=== PATIENT | female | born 1990 | race American Indian/Alaskan Native ===

== ENCOUNTER 2017-05-10 16:05 | Inpatient (IN) | payer MEDICAID ==
--- NOTE | 2017-05-10 17:13 | History and Physical Report ---
History of Present Illness Date of examination: 05/10/17 Date of admission: 05/10/17 16:05 Chief complaint: Elevated blood pressure Rule out labor History of present illness: 26-year-old at 34+1 weeks is admitted from the clinic, she is a [facility] patient. Essential history this patient with chronic hypertension and obesity who is on labetalol 100 mg twice a day; she sees [facility] and has weekly ultrasounds the last on 05/07/2017. It appears patient was seen in the clinic today with blood pressure noted to be in the 160 over 100s, asymptomatic for pre -E but complaining of contractions and pressure. She was sent to [facility] for rule out labor and management of her blood pressure. Review of records shows possible IUGR from last growth scan. She has not had steroid shot. Per patient glucose testing was negative. 24 hour urine protein obtained 04/17/17 appears to be negative per chart review On L&D, her blood pressure is 158/85. Cervical exam per RN is 2-3 cm, no obvious contractions noted on the monitor. 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 denies: smoking, alcohol abuse, prescription drug abuse, IV drug use - Obstetrical History Expected Date of Delivery: 06/20/17 Actual Gestation: 34 Week(s) 1 Day(s) : 5 Para: 3 Review of Systems Constitutional: no fever, no chills, no anorexia, no chronic headaches Eyes: no diplopia, no photophobia, no blind spots Cardiovascular: no chest pain, no orthopnea, no syncope, no lightheadedness, no shortness of breath, no dyspnea on exertion, no high blood pressure, no decreased exercise tolerance Respiratory: no cough, no shortness of breath Gastrointestinal: no heartburn, no indigestion Genitourinary: no vaginal bleeding, no leakage of fluid - Vital Signs Vital signs: Vital Signs Pulse BP 71 150/85 05/10/17 16:46 05/10/17 16:46 Temp Pulse Resp BP Pulse Ox 97.2 F L 67 16 150/85 100 05/10/17 16:47 05/10/17 16:57 05/10/17 16:47 05/10/17 16:47 05/10/17 16:57 - Physical Exam Cardiovascular: Regular rate, Normal S1, Normal S2 Lungs: Positive: Clear to auscultation, Normal air movement Abdomen: Positive: normal appearance, soft. Negative: distention, tenderness, guarding Genitourinary (Female): Positive: normal external genitalia Uterus: Positive: enlarged (EFW ~ 2800). Negative: tender Adnexa: both: normal Extremities: Positive: normal - Obstetrical FHR: category 1 Cervical Dilatation: 2.5 (Per RN) Results All other labs normal. Assessment and Plan A: 26-year-old at 34+1 weeks with chronic hypertension -r/o superimposed pre-E -r/o labour issues -Chronic hypertension -Obesity -IUGR at 7% P: -Admit -Serial blood pressures -HELLP labs -Obtain confirmation of -24 hour urine protein -BMZ course -BPP and Doppler -Consider magnesium if blood pressures persistently in severe range -MFM consultation - Patient Problems (1) 34 weeks gestation of Current Visit: Yes Status: Acute (2) Chronic hypertension affecting Current Visit: Yes Status: Acute (3) IUGR (intrauterine growth restriction) Current Visit: Yes Status: Acute
[2017-05-10] MEDS ORDERED: APRESOLINE IV PRN (17:21)
[2017-05-10] MEDS ORDERED: BENADRYL PO PRN (17:24)
[2017-05-10] MEDS ORDERED: COLACE PO PRN (17:24)
[2017-05-10 17:56] LABS: Hematocrit 27.3 % (30.3-42.9); Hemoglobin 8.9 gm/dl (10.1-14.3); Mean Corpuscular HGB Conc 33 % (30-34); Mean Corpuscular Hemoglobin 27 pg (28-32); Mean Corpuscular Volume 81 fl (79-97); Platelet Count 339 K/mm3 (140-440); Red Blood Count 3.35 M/mm3 (3.65-5.03); Red Cell Distribution Width 15.9 % (13.2-15.2)
[2017-05-10] MEDS ORDERED: LACTATED RINGERS 1,000 ML IV SCH (18:00)
[2017-05-10 18:24] LABS: Alanine Aminotransferase 10 units/L (7-56); Albumin 2.8 g/dL (3.9-5); BUN/Creatinine Ratio 4; Bilirubin,Direct 0.2 mg/dL (0-0.2); Blood Urea Nitrogen 2 mg/dL (7-17); Calcium 8.4 mg/dL (8.4-10.2); Hemolysis Index 6
[2017-05-10 18:43] LABS: Bilirubin,Urine NEG (Negative); Blood,Urine NEG (Negative); Color,Urine Yellow (Yellow); Protein,Urine <15 mg/dL mg/dL (Negative); Urobilinogen,Urine < 2.0 mg/dL (<2.0); WBC,Urine < 1.0 /HPF (0.0-6.0)
[2017-05-10 18:51] LABS: RBC,Urine < 1.0 /HPF (0.0-6.0)
[2017-05-10 18:52] LABS: Amphetamine Screen,Urine PRESUMPTIVE NEGATIVE; Benzodiazepines Screen,Urine PRESUMPTIVE NEGATIVE; Cannabinoid Screen,Urine PRESUMPTIVE NEGATIVE; Cocaine Screen,Urine PRESUMPTIVE NEGATIVE; Methadone Screen,Urine PRESUMPTIVE NEGATIVE; Opiate Screen,Urine PRESUMPTIVE NEGATIVE
[2017-05-10] MEDS ORDERED: NORMOSOL-R PH 7.4 1,000 ML IV ONE (19:41)
[2017-05-10] MEDS ORDERED: STADOL ONE (19:42)
[2017-05-10] MEDS: CELESTONE SOLUSPAN IM SCH (20:03)
[2017-05-10] MEDS: K-DUR PO PRN ×2 (20:07→23:25)
--- NOTE | 2017-05-10 20:48 | Ultrasound Report ---
FINAL REPORT PROCEDURE: US OB LIMITED TECHNIQUE: Real-time limited sonographic examination was performed for evaluation of WEIGHT for each fetus with image documentation (1 or more fetuses). CPT 18938 HISTORY: est weight COMPARISON: No prior studies are available for comparison. FINDINGS: FETUS IUP: Single living intrauterine . Position: CEPHALIC. Placental position: ANTERIOR with grade 1 maturity, without previa . Amniotic fluid volume: Normal . Heart rate and rhythm: 137 BPM, Regular . MEASUREMENTS BPD: 8.2 centimeters corresponding to 33 weeks and 3 days. HC: 30 centimeters corresponding to 33 weeks and 2 days. AC: 27.8 centimeters corresponding to 31 weeks and 6 days. FL: 6.1 centimeters corresponding to 31 weeks and 4 days. Mean Gestational Age (composite criteria): 32 weeks and 4 days. Ratio biometry: Normal . Estimated Weight: 1887 grams. IMPRESSION: 1. Single living intrauterine gestation at approximately 32 weeks and 4 days. 2. EDC by US 07/01/2017. Estimated weight 1887 grams
--- NOTE | 2017-05-10 20:50 | Ultrasound Report ---
FINAL REPORT PROCEDURE: US OB BPP WO NON-STRESS TECHNIQUE: Sonographic evaluation for breathing, movement, tone, and amniotic fluid volume was performed. CPT 92820 HISTORY: IUGR with chronic HTN COMPARISON: No prior studies are available for comparison. FINDINGS: Amniotic fluid volume: Normal-score 2. At least one vertical pocket > 2 cm or more in vertical axis. breathing: Normal-score 2. movement: Normal-score 2. tone: Normal. Score: 8 of 8. heart rate is 145 beats per Min IMPRESSION: Normal biophysical profile.
[2017-05-10] MEDS ORDERED: NORMODYNE PO SCH ×2 (22:00→22:12)
--- NOTE | 2017-05-10 22:14 | Consultation ---
History of Present Illness Consult date: 05/10/17 Requesting physician: OLY DOWNING History of present illness: Ms. Shell is a 26 y/o BURKE 06/22/17 EGA 34 1/ weeks sent in from OB's office with Elevated BP's "160/100" Reports BP's Elevated early in (147/90 at 8 weeks on 11/09/16) Denies VERMA';s [place] or RUQ Pain Upon admission noted to have contractions and 2 to 3 cm dilated BP's now 149/86 and 137/94 Followed by [facility] for CHTN and IUGR and [facility] US 04/30/17 EFW at 7% [facility] US 05/10/17 [facility] US today EFW at 1881 at 5% with AC at 5% BPP 8/ Cord Dopplers at 3.4 Receiving Steroids PIH Labs WNL AST/ALT at 25/10 Plts at 339 H/H at 8.9/27 K low at 3.0 OB History 06 - M 7' 11 - F 7' 16 - Induced at 38 weeks due to HTN M 6' ?? 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: chlamydia, gonorrhea, hepatitis B, hepatitis C, herpes, HIV , syphilis, trichomonas - Obstetrical History : 5 Medications and Allergies Allergies Allergy/AdvReac Type Severity Reaction Status Date / Time No Known Allergies Allergy Unverified 05/10/17 17:31 Home Medications Medication Instructions Recorded Confirmed Last Taken Type Aspirin BABY CHEW TAB 81 mg PO QDAY 05/10/17 05/10/17 Unknown History Docusate Sodium [Colace CAP] 1 tab PO QDAY 05/10/17 05/10/17 Unknown History Labetalol 100 mg PO BID 05/10/17 05/10/17 05/10/17 10:00 History Valacyclovir HCl [Valtrex] 500 mg PO QDAY 05/10/17 05/10/17 Unknown History Active Meds: Active Medications Acetaminophen (Tylenol) 650 mg PO Q4H PRN PRN Reason: Pain MILD(1-3)/Fever >100.5/VERMA Betamethasone Acet/Betameth SodPhos (Celestone Soluspan) 12 mg IM Q24HR VIPIN Stop: 05/11/17 10:01 Last Admin: 05/10/17 20:03 Dose: 12 mg Butorphanol Tartrate (Stadol) 2 mg IV Q2H PRN PRN Reason: Labor Pain Diphenhydramine HCl (Benadryl) 25 mg PO Q6H PRN PRN Reason: Itching Docusate Sodium (Colace) 100 mg PO Q12H PRN PRN Reason: Constipation Hydralazine HCl (Apresoline) 5 mg IV Q30MIN PRN PRN Reason: Hypertension Lactated Ringer's (Lactated Ringers) 1,000 mls @ 125 mls/hr IV DIRECT VIPIN Parenteral Electrolytes (Normosol-R Ph 7.4) 1,000 mls @ 125 mls/hr IV DIRECT VIPIN Labetalol HCl (Normodyne) 100 mg PO BID [facility] Multivitamins/Iron/Calcium ( Vitamin) 1 each PO QDAY [facility] Ondansetron HCl (Zofran) 4 mg IV Q6H PRN PRN Reason: Nausea And Vomiting Potassium Chloride (K-Dur) 20 meq PO Q2H PRN PRN Reason: Potassium 3-3.5 mEq/L Last Admin: 05/10/17 20:07 Dose: 20 meq - Vital Signs Vital signs: Vital Signs Pulse BP 71 150/85 05/10/17 16:46 05/10/17 16:46 Temp Pulse Resp BP Pulse Ox 97.2 F L 94 H 18 137/94 98 05/10/17 16:47 05/10/17 21:52 05/10/17 20:34 05/10/17 21:52 05/10/17 21:07 Results Result Diagrams: 05/10/17 17:38 05/10/17 17:38 Abnormal lab results 05/10/17 05/10/17 05/10/17 Range/Units 17:38 17:38 Unknown RBC 3.35 L (3.65-5.03) M/mm3 Hgb 8.9 L (10.1-14.3) gm/dl Hct 27.3 L (30.3-42.9) % MCH 27 L (28-32) pg RDW 15.9 H (13.2-15.2) % Sodium 136 L (137-145) mmol/L Potassium 3.0 L (3.6-5.0) mmol/L Chloride 95.8 L (98-107) mmol/L BUN 2 L (7-17) mg/dL Creatinine 0.5 L (0.7-1.2) mg/dL Alkaline Phosphatase 131 H (35-129) units/L Total Protein 6.0 L (6.3-8.2) g/dL Albumin 2.8 L (3.9-5) g/dL Ur Specific [place] 1.001 L (1.003-1.030) All other labs normal. Assessment and Plan 1. [place] IUP at 34 1/7 weeks 2. CHTN with Elevated BP's 3. IUGR 4. Prior H/O Induction in 2015 for Elevated BP's at 38 weeks 5. Anemia 6. Hypokolemia 7. Recommendations 1. Steroids for FLM 2. Increase Labetalol from 100 BID to 200 BID 3. Delivery for S/S of severe PIH or compromise 4. If BP's remain in mild range may consider discharge with twice per week A-P surveillance and weekly PIH labs and understanding of all S/S of PIH or DFM's 5. Delivery recommended at 36 -37 weeks if remains mild HTN with IUGR 6. Would not tocolys if goes into labor 7. Iron BID 8. K - IV 9. NICU consult if not done 10. 24 Hour urine for Protein and CC - Poss dc once complete
--- NOTE | 2017-05-10 23:12 | Ultrasound Report ---
FINAL REPORT EXAM: US OB VELOCIMETRY UMBILCAL ART HISTORY: IUGR with chronic HTN TECHNIQUE: Longitudinal and transverse grayscale, color, and Doppler sonographic images of the umbilical cord were performed Comparison: Biophysical profile score same day and OB ultrasound same day demonstrating single live intrauterine gestation at 32 weeks 4 days with estimated due date of 07/01/2017 FINDINGS: heart rate measures 137 beats per minute. The average S/D ratio is 3.4 with normal waveform. Resistive index averages 0.71 with normal waveform. IMPRESSION: Normal umbilical cord Doppler.
[2017-05-10] MEDS ORDERED: AMBIEN ONE (23:22)
[2017-05-11] MEDS: STADOL IV PRN (06:33)
--- NOTE | 2017-05-11 07:59 | Progress Note ---
Assessment and Plan - Patient Problems (1) 34 weeks gestation of Onset Date: 05/11/17 Current Visit: Yes Status: Acute Plan to address problem: A: IUP @ 34 2/7 weeks Chronic hypertension with suspected superimposed preeclampsia - currently stable on Labetolol 200mg BID, and received 1st dose BMZ IUGR (7%) Obesity Hypokalemia P: Continue present management - Appreciate [facility] consultation 24hr urine in progress Replete K+ NICU consultation (2) Chronic hypertension affecting Onset Date: 05/11/17 Current Visit: Yes Status: Chronic (3) IUGR (intrauterine growth restriction) Onset Date: 05/11/17 Current Visit: Yes Status: Acute (4) Obesity (BMI 30-39.9) Onset Date: 05/11/17 Current Visit: Yes Status: Chronic (5) Hypokalemia Onset Date: 05/11/17 Current Visit: Yes Status: Acute Subjective - Subjective Date of service: 05/11/17 Principal diagnosis: IUP @ 34 2/7 weeks; Chronic hypertension w superimposed preeclampsia; IUGR Interval history: Pt is a 26-year-old BF at 34 2/7 weeks is admitted from the clinic, she is a [facility] patient. Essential history this patient with chronic hypertension and obesity who is currently on Labetalol 200 mg twice a day; she sees [facility] and has weekly ultrasounds the last on 05/07/2017. It appears patient was seen in the clinic today with blood pressure noted to be in the 160 over 100s, asymptomatic for pre-E but complaining of contractions and pressure. She was sent to [facility] for rule out labor and management of her blood pressure. Review of records shows possible IUGR from last growth scan. 24 hour urine for protein is in progress. Her cervical exam per RN is 2-3 cm which is unchanged from admission, and no obvious contractions noted on the monitor. She denies headaches, scotomata epigastric pain, no shortness of breath or chest pain Patient reports: movement normal, contractions, no new complaints, no loss of fluid, no vaginal bleeding Objective - Vital Signs Vital Signs: Vital Signs - 12hr 05/10/17 05/10/17 05/10/17 20:34 20:37 20:42 Pulse Rate 69 85 Respiratory 18 Rate Blood Pressure O2 Sat by Pulse 100 98 Oximetry 05/10/17 05/10/17 05/10/17 20:47 20:52 20:57 Pulse Rate 96 H 83 85 Respiratory Rate Blood Pressure O2 Sat by Pulse 94 97 95 Oximetry 05/10/17 05/10/17 05/10/17 21:02 21:04 21:07 Pulse Rate 86 96 H 81 Respiratory 18 Rate Blood Pressure O2 Sat by Pulse 95 94 98 Oximetry 05/10/1718 05/11/17 21:52 23:14 03:55 Pulse Rate 94 H 82 108 H Respiratory Rate Blood Pressure 137/94 159/108 122/81 O2 Sat by Pulse Oximetry 05/11/1718 05/11/17 04:55 05:55 06:28 Pulse Rate 107 H 100 H 109 H Respiratory Rate Blood Pressure 120/77 136/80 O2 Sat by Pulse 98 Oximetry 05/11/17 05/11/17 05/11/17 06:29 06:33 06:38 Pulse Rate 126 H 120 H 111 H Respiratory 18 Rate Blood Pressure 106/70 O2 Sat by Pulse 96 95 Oximetry 05/11/17 05/11/17 05/11/17 06:41 06:43 06:48 Pulse Rate 111 H 107 H 105 H Respiratory Rate Blood Pressure 111/63 O2 Sat by Pulse 93 95 95 Oximetry 05/11/17 05/11/17 05/11/17 06:53 06:55 06:58 Pulse Rate 108 H 110 H 105 H Respiratory Rate Blood Pressure 109/61 O2 Sat by Pulse 95 96 Oximetry 05/11/1718 05/11/17 07:00 07:03 07:08 Pulse Rate 110 H 108 H 111 H Respiratory Rate Blood Pressure O2 Sat by Pulse 94 94 94 Oximetry 05/11/17 05/11/17 05/11/17 07:13 07:18 07:20 Pulse Rate 109 H 111 H 110 H Respiratory Rate Blood Pressure O2 Sat by Pulse 94 96 94 Oximetry 18 18 05/11/17 07:23 07:28 07:29 Pulse Rate 107 H 109 H 112 H Respiratory Rate Blood Pressure O2 Sat by Pulse 96 96 94 Oximetry 18 05/11/18 18 07:33 07:38 07:43 Pulse Rate 110 H 111 H 112 H Respiratory Rate Blood Pressure O2 Sat by Pulse 95 95 95 Oximetry 05/11/17 05/11/17 05/11/17 07:48 07:53 07:55 Pulse Rate 116 H 110 H 113 H Respiratory Rate Blood Pressure 97/54 O2 Sat by Pulse 94 96 Oximetry - Exam Breasts: deferred Cardiovascular: Regular rate Lungs: Clear to auscultation Abdomen: Present: normal appearance, soft Uterus: Present: normal FHR: category 1 Uterine Contraction Monitor Mode: External Uterine Contraction Pattern: Irregular Uterine Tone Measurement Phase: Contraction Uterine Contraction Intensity: Moderate Extremities: normal - Labs Labs: Abnormal Labs 05/10/17 05/10/17 05/10/17 17:38 17:38 Unknown RBC 3.35 L Hgb 8.9 L Hct 27.3 L MCH 27 L RDW 15.9 H Sodium 136 L Potassium 3.0 L Chloride 95.8 L BUN 2 L Creatinine 0.5 L Alkaline Phosphatase 131 H Total Protein 6.0 L Albumin 2.8 L Ur Specific [place] 1.001 L Laboratory Results - last 24 hr 05/10/17 05/10/17 05/10/17 17:38 17:38 17:38 WBC 5.8 RBC 3.35 L Hgb 8.9 L Hct 27.3 L MCV 81 MCH 27 L MCHC 33 RDW 15.9 H Plt Count 339 Sodium 136 L Potassium 3.0 L Chloride 95.8 L Carbon Dioxide 23 Anion Gap 20 BUN 2 L Creatinine 0.5 L Estimated GFR > 60 BUN/Creatinine Ratio 4 Glucose 73 Calcium 8.4 Total Bilirubin 0.50 Direct Bilirubin 0.2 Indirect Bilirubin 0.3 AST 25 ALT 10 Alkaline Phosphatase 131 H Total Protein 6.0 L Albumin 2.8 L Albumin/Globulin Ratio 0.9 Urine Color Urine Turbidity Urine pH Ur Specific [place] Urine Protein Urine Glucose (UA) Urine Ketones Urine Blood Urine Nitrite Urine Bilirubin Urine Urobilinogen Ur Leukocyte Esterase Urine WBC (Auto) Urine RBC (Auto) U Epithel Cells (Auto) Urine Opiates Screen Urine Methadone Screen Ur Barbiturates Screen Ur Phencyclidine Scrn Ur Amphetamines Screen U Benzodiazepines Scrn Urine Cocaine Screen U Marijuana (THC) Screen Drugs of Abuse Note Blood Type A POSITIVE Antibody Screen Negative 05/10/17 05/10/17 Unknown Unknown WBC RBC Hgb Hct MCV MCH MCHC RDW Plt Count Sodium Potassium Chloride Carbon Dioxide Anion Gap BUN Creatinine Estimated GFR BUN/Creatinine Ratio Glucose Calcium Total Bilirubin Direct Bilirubin Indirect Bilirubin AST ALT Alkaline Phosphatase Total Protein Albumin Albumin/Globulin Ratio Urine Color Yellow Urine Turbidity Clear Urine pH 7.0 Ur Specific [place] 1.001 L Urine Protein <15 mg/dl Urine Glucose (UA) Neg Urine Ketones Neg Urine Blood Neg Urine Nitrite Neg Urine Bilirubin Neg Urine Urobilinogen < 2.0 Ur Leukocyte Esterase Neg Urine WBC (Auto) < 1.0 Urine RBC (Auto) < 1.0 U Epithel Cells (Auto) < 1.0 Urine Opiates Screen Presumptive negative Urine Methadone Screen Presumptive negative Ur Barbiturates Screen Presumptive negative Ur Phencyclidine Scrn Presumptive negative Ur Amphetamines Screen Presumptive negative U Benzodiazepines Scrn Presumptive negative Urine Cocaine Screen Presumptive negative U Marijuana (THC) Screen Presumptive negative Drugs of Abuse Note Disclamer Blood Type Antibody Screen - Results US- obstetric: report reviewed ([place], cephalic, [place] 11.0, EFW 1887gms; BPP 10/02; Doppler 3.4)
[2017-05-11] MEDS ORDERED: KCL 10MEQ/100ML 10 MEQ/100 ML BAG IV PRN (08:29)
[2017-05-11] MEDS ORDERED: KCL 40 MEQ in NACL 0.9% 500 ML 500 ML IV ONE (08:45)
[2017-05-11] MEDS: ALUM-MAG HYDROX-SIMETH 200-200-20MG/5ML PO PRN ×2 (09:59→16:26)
[2017-05-11] MEDS: NORMODYNE PO SCH ×2 (10:15→22:05)
[2017-05-11] MEDS: NORMOSOL-R PH 7.4 1,000 ML IV SCH (10:31)
[2017-05-11] MEDS: VALTREX PO SCH (11:30)
[2017-05-11] MEDS: ZOFRAN IV PRN (11:44)
[2017-05-11 15:02] LABS: Hemoglobin 9.3 gm/dl (10.1-14.3); Mean Corpuscular Volume 83 fl (79-97); Red Blood Count 3.51 M/mm3 (3.65-5.03)
[2017-05-11 15:03] LABS: Basophils % (Auto) 0.3 % (0.0-1.8); Lymphocytes # (Auto) 1.4 K/mm3 (1.2-5.4); Lymphocytes % (Auto) 28.3 % (13.4-35.0); Mean Corpuscular HGB Conc 32 % (30-34); Mean Corpuscular Hemoglobin 26 pg (28-32); Monocytes # (Auto) 0.3 K/mm3 (0.0-0.8); Monocytes % (Auto) 6.8 % (0.0-7.3); Platelet Count 374 K/mm3 (140-440)
[2017-05-11 15:22] LABS: Alanine Aminotransferase 13 units/L (7-56); Uric Acid 8.4 mg/dL (3.5-7.6)
[2017-05-11 17:38] LABS: Lipase 15 units/L (13-60)
[2017-05-11] MEDS: FEOSOL PO SCH (18:56)
[2017-05-11] MEDS: PRENATAL VITAMIN PO SCH (18:57)
--- NOTE | 2017-05-11 19:34 | Ultrasound Report ---
FINAL REPORT EXAM: US ABDOMEN LIMITED HISTORY: abdominal pain TECHNIQUE: Right upper quadrant ultrasound PRIORS: None. FINDINGS: Examination of the gallbladder demonstrates the gallbladder lumen to be filled with echogenic shadowing gallstones. There is a TYLER sign (wall echo shadow). There is no evidence for distention, wall thickening, or pericholecystic fluid. No sonographic Barraza's sign is elicited. Common bile duct is normal in diameter measuring 3.8 mm. The liver is normal and homogeneous in echogenicity without focal abnormality or intrahepatic biliary dilatation. The pancreas is normal in thickness without focal abnormality or pancreatic duct dilatation. The right kidney is normal in size without calculi or hydronephrosis. Right kidney measures 9.3 cm in craniocaudal length. The aorta is normal in caliber with the proximal portion measuring 1.6 cm in diameter. IMPRESSION: cholelithiasis filling the gallbladder. No evidence for secondary signs of acute cholecystitis is seen.
[2017-05-11] MEDS: TYLENOL PO PRN (19:36)
--- NOTE | 2017-05-11 19:37 | Ultrasound Report ---
FINAL REPORT EXAM: US OB BPP WO NON-STRESS HISTORY: wellbeing TECHNIQUE: Biophysical profile obstetrical ultrasound PRIORS: None. FINDINGS: Biophysical profile scoring 2 movement 2 tone 2 breathing 2 fluid 8/8 overall score Presentation: Cephalic Activity: Monitored Placental location: Anterior Placental grade: 1 Cardiac motion: 131 BPM using M-mode doppler Amniotic Fluid Volume: Adequate [place] 10.3 cm IMPRESSION: Single intrauterine viable with a biophysical profile score of 8/8
--- NOTE | 2017-05-11 19:39 | Ultrasound Report ---
FINAL REPORT EXAM: US OB LIMITED HISTORY: wellbeing; [place] TECHNIQUE: Limited obstetrical ultrasound PRIORS: None. FINDINGS: Presentation: Cephalic Activity: Monitored Placental location: Anterior Placental grade: 1 Cardiac motion: 131 BPM using M-mode doppler Amniotic Fluid Volume: Adequate [place]: 10.3 cm IMPRESSION: Single intrauterine viable with an approximate age of 32 weeks. [place] 10.3 cm
[2017-05-11] MEDS ORDERED: CELESTONE SOLUSPAN IM ONE (20:12)
[2017-05-11] MEDS: CELESTONE SOLUSPAN IM SCH (20:15)
[2017-05-12] MEDS: NORMOSOL-R PH 7.4 1,000 ML IV SCH ×3 (04:08→21:50)
[2017-05-12] MEDS: AMBIEN PO PRN ×2 (04:11→21:54)
--- NOTE | 2017-05-12 08:20 | Progress Note ---
Assessment and Plan - Patient Problems (1) 34 weeks gestation of Onset Date: 05/11/17 Current Visit: Yes Status: Acute Plan to address problem: A: IUP @ 34 3/7 weeks Chronic hypertension with suspected superimposed preeclampsia - currently stable on Labetolol 200mg BID, completed BMZ IUGR (7%) Obesity Hypokalemia Gallstones - stable P: Continue present management - Appreciate [facility] and General surgery consultation 24hr urine in progress Replete K+ NICU consultation (2) Chronic hypertension affecting Onset Date: 05/11/17 Current Visit: Yes Status: Chronic (3) IUGR (intrauterine growth restriction) Onset Date: 05/11/17 Current Visit: Yes Status: Acute (4) Obesity (BMI 30-39.9) Onset Date: 05/11/17 Current Visit: Yes Status: Chronic (5) Hypokalemia Onset Date: 05/11/17 Current Visit: Yes Status: Acute Subjective - Subjective Date of service: 05/12/17 Principal diagnosis: IUP @ 34 3/7 weeks; Chronic hypertension w superimposed preeclampsia; IUGR Interval history: Pt is a 26-year-old BF at 34 3/7 weeks is admitted from the clinic, she is a [facility] patient. Essential history this patient with chronic hypertension and obesity who is currently on Labetalol 200 mg twice a day; she sees [facility] and has weekly ultrasounds the last on 05/07/2017. It appears patient was seen in the clinic today with blood pressure noted to be in the 160 over 100s, asymptomatic for pre-E but complaining of contractions and pressure. She was sent to [facility] for rule out labor and management of her blood pressure. Review of records shows possible IUGR from last growth scan. 24 hour urine for protein is in progress. Her cervical exam per RN is 2-3 cm which is unchanged from admission, and no obvious contractions noted on the monitor. She denies headaches, scotomata epigastric pain, no shortness of breath or chest pain. She was seen by General Surgery today - no intervention at this time. Patient reports: movement normal, contractions, no new complaints, no loss of fluid, no vaginal bleeding Objective - Vital Signs Vital Signs: Vital Signs - 12hr 05/11/17 05/11/17 05/11/17 20:23 20:28 20:33 Pulse Rate 118 H 114 H 121 H Blood Pressure O2 Sat by Pulse 98 99 100 Oximetry 05/11/17 05/11/17 05/11/17 20:38 20:43 20:48 Pulse Rate 98 H 100 H 103 H Blood Pressure O2 Sat by Pulse 99 99 99 Oximetry 05/11/17 05/11/17 05/11/17 20:50 20:53 20:56 Pulse Rate 104 H 104 H 103 H Blood Pressure 135/64 O2 Sat by Pulse 93 98 Oximetry 05/11/17 05/11/17 05/11/17 20:58 21:03 21:08 Pulse Rate 121 H 106 H 113 H Blood Pressure O2 Sat by Pulse 94 99 99 Oximetry 05/11/17 05/11/17 05/11/17 21:13 21:18 21:23 Pulse Rate 103 H 103 H 103 H Blood Pressure O2 Sat by Pulse 100 99 98 Oximetry 05/11/17 05/11/17 05/11/17 21:28 21:33 21:55 Pulse Rate 100 H 116 H 108 H Blood Pressure O2 Sat by Pulse 99 97 97 Oximetry 05/11/17 05/11/17 05/11/17 22:00 22:05 22:06 Pulse Rate 100 H 100 H 104 H Blood Pressure 154/81 O2 Sat by Pulse 97 96 Oximetry 05/11/17 05/11/17 05/11/17 22:10 22:11 22:55 Pulse Rate 102 H 101 H 100 H Blood Pressure 154/81 139/85 O2 Sat by Pulse 98 Oximetry 05/11/17 05/12/17 05/12/17 23:55 01:56 02:55 Pulse Rate 103 H 107 H 103 H Blood Pressure 137/92 120/79 105/56 O2 Sat by Pulse Oximetry 05/12/17 05/12/17 05/12/17 03:55 04:56 05:55 Pulse Rate 118 H 107 H 117 H Blood Pressure 127/79 140/76 133/78 O2 Sat by Pulse Oximetry 05/12/17 05/12/17 06:55 07:55 Pulse Rate 125 H 123 H Blood Pressure 105/59 121/66 O2 Sat by Pulse Oximetry - Exam Cardiovascular: Regular rate Lungs: Clear to auscultation Abdomen: Present: normal appearance, soft Uterus: Present: normal FHR: category 1 Uterine Contraction Monitor Mode: External Uterine Contraction Pattern: Absent - Labs Labs: Abnormal Labs 05/10/17 05/10/17 05/10/17 17:38 17:38 Unknown RBC 3.35 L Hgb 8.9 L Hct 27.3 L MCH 27 L RDW 15.9 H Sodium 136 L Potassium 3.0 L Chloride 95.8 L BUN 2 L Creatinine 0.5 L Uric Acid Alkaline Phosphatase 131 H Lactate Dehydrogenase Total Protein 6.0 L Albumin 2.8 L Ur Specific [place] 1.001 L 05/11/17 05/11/17 05/11/17 07:56 14:48 14:48 RBC 3.51 L Hgb 9.3 L Hct 29.0 L MCH 26 L RDW 16.0 H Sodium Potassium 3.1 L Chloride BUN Creatinine 0.5 L Uric Acid 8.4 H Alkaline Phosphatase Lactate Dehydrogenase 219 H Total Protein Albumin Ur Specific [place] Laboratory Results - last 24 hr 05/11/17 05/11/17 05/11/17 07:56 14:48 14:48 WBC 4.9 RBC 3.51 L Hgb 9.3 L Hct 29.0 L MCV 83 MCH 26 L MCHC 32 RDW 16.0 H Plt Count 374 Lymph % (Auto) 28.3 [place] % (Auto) 6.8 Eos % (Auto) 0.0 Baso % (Auto) 0.3 Lymph # 1.4 [place] # 0.3 Eos # 0.0 Baso # 0.0 Seg Neutrophils % 64.6 Seg Neutrophils # 3.2 Potassium 3.1 L Creatinine 0.5 L Estimated GFR > 60 Uric Acid 8.4 H AST 29 ALT 13 Lactate Dehydrogenase 219 H Amylase Lipase 05/11/17 14:48 WBC RBC Hgb Hct MCV MCH MCHC RDW Plt Count Lymph % (Auto) [place] % (Auto) Eos % (Auto) Baso % (Auto) Lymph # [place] # Eos # Baso # Seg Neutrophils % Seg Neutrophils # Potassium Creatinine Estimated GFR Uric Acid AST ALT Lactate Dehydrogenase Amylase 50 Lipase 15 - Results US- obstetric: report reviewed (BPP 10/02; Abdominal u/s showed gallbladder wall - packed with stones)
--- NOTE | 2017-05-12 09:33 | Consultation ---
History of Present Illness Consult date: 05/12/17 Requesting physician: WANDER ALFREDO Chief complaint: abd pain - History of present illness History of present illness: 26 yo F, 34 weeks gestation, presented to hospital with c/o lower abdominal pain. The pain is crampy in nature and started on the day of presentation, 2 days ago. 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 In addition, her blood pressure was elevated. The patient states , the abdominal pain is localized to the lower abdomen, vaginal area. She describes it as crampy, contraction like pain. It does not radiate. The pain is unrelated to food. She has been having increasing nausea and one episode of nonbloody/nonbilious emesis yesterday. She has been tolerating water today. No f /c, cp, sob. She has never had pain like this in the past. Past History Past Medical History: hypertension Past Surgical History: No surgical history Social history: single, full code. denies: smoking, alcohol abuse, prescription drug abuse, IV drug use Family history: no significant family history Medications and Allergies Allergies Allergy/AdvReac Type Severity Reaction Status Date / Time No Known Allergies Allergy Unverified 05/10/17 17:31 Home Medications Medication Instructions Recorded Confirmed Last Taken Type Aspirin BABY CHEW TAB 81 mg PO QDAY 05/10/17 05/10/17 Unknown History Docusate Sodium [Colace CAP] 1 tab PO QDAY 05/10/17 05/10/17 Unknown History Labetalol 100 mg PO BID 05/10/17 05/10/17 05/10/17 10:00 History Valacyclovir HCl [Valtrex] 500 mg PO QDAY 05/10/17 05/10/17 Unknown History Active Meds: Active Medications Acetaminophen (Tylenol) 650 mg PO Q4H PRN PRN Reason: Pain MILD(1-3)/Fever >100.5/VERMA Last Admin: 05/11/17 19:36 Dose: 650 mg Al Hydrox/Mg Hydrox/Simethicone (Alum-Mag Hydrox-Simeth [phone]/5ml) 30 ml PO Q6H PRN PRN Reason: Indigestion Last Admin: 05/11/17 16:26 Dose: 30 ml Betamethasone Acet/Betameth SodPhos (Celestone Soluspan) 12 mg IM Q24HR [facility] Stop: 05/12/17 10:01 Butorphanol Tartrate (Stadol) 2 mg IV Q2H PRN PRN Reason: Labor Pain Last Admin: 05/11/17 06:33 Dose: 2 mg Diphenhydramine HCl (Benadryl) 25 mg PO Q6H PRN PRN Reason: Itching Docusate Sodium (Colace) 100 mg PO Q12H PRN PRN Reason: Constipation Ferrous Sulfate (Feosol) 325 mg PO BID [facility] Last Admin: 05/11/17 18:56 Dose: Not Given Hydralazine HCl (Apresoline) 5 mg IV Q30MIN PRN PRN Reason: Hypertension Lactated Ringer's (Lactated Ringers) 1,000 mls @ 125 mls/hr IV DIRECT VIPIN Parenteral Electrolytes (Normosol-R Ph 7.4) 1,000 mls @ 125 mls/hr IV DIRECT VIPIN Last Admin: 05/12/17 04:08 Dose: 125 mls/hr Labetalol HCl (Normodyne) 200 mg PO BID [facility] Last Admin: 05/11/17 22:05 Dose: 200 mg Multivitamins/Iron/Calcium ( Vitamin) 1 each PO QDAY [facility] Last Admin: 05/11/17 18:57 Dose: Not Given Ondansetron HCl (Zofran) 4 mg IV Q6H PRN PRN Reason: Nausea And Vomiting Last Admin: 05/11/17 11:44 Dose: 4 mg Valacyclovir HCl (Valtrex) 500 mg PO QDAY [facility] Last Admin: 05/11/17 11:30 Dose: 500 mg Zolpidem Tartrate (Ambien) 10 mg PO QHS PRN PRN Reason: Insomnia Last Admin: 05/12/17 04:11 Dose: 10 mg Review of Systems All systems: negative (10 pt ROS performed and negative except for above in HPI) Exam Vital Signs Pulse BP 71 150/85 05/10/17 16:46 05/10/17 16:46 Narrative exam: Gen: AAOx3. NAD ENT; no scleral icterus or conjunctival pallor CV: s1, s2 + Resp: CTAB, no w/r/r Abd: soft, +TTP in lower abdomen. Negative murphys sign. No r/r/g Ext: no c/c/e Results - Labs 05/11/17 14:48 05/11/17 14:48 Abnormal lab results 05/11/17 05/11/17 Range/Units 14:48 14:48 RBC 3.51 L (3.65-5.03) M/mm3 Hgb 9.3 L (10.1-14.3) gm/dl Hct 29.0 L (30.3-42.9) % MCH 26 L (28-32) pg RDW 16.0 H (13.2-15.2) % Creatinine 0.5 L (0.7-1.2) mg/dL Uric Acid 8.4 H (3.5-7.6) mg/dL Lactate Dehydrogenase 219 H (91-180) units/L Diabetes panel 05/11/17 Range/Units 14:48 Creatinine 0.5 L (0.7-1.2) mg/dL AST 29 (5-40) units/L ALT 13 (7-56) units/L Pituitary panel 05/11/17 Range/Units 14:48 Creatinine 0.5 L (0.7-1.2) mg/dL Adrenal panel 05/11/17 Range/Units 14:48 Creatinine 0.5 L (0.7-1.2) mg/dL AST 29 (5-40) units/L ALT 13 (7-56) units/L - Imaging US - abdomen: report reviewed, image reviewed Assessment and Plan 26 y/o F with 1. lower abdominal pain 2. 34 weeks gestation 3. gallstones Plan: 1. Abd U/s shows many stones but no signs of acute cholecystitis. LFTs normal. 2. continue clear liquids -> adv diet as tolerated 3. PRN pain and nausea control 4. Unlikely that lower abdominal pain is related to gallstones. I discussed elective cholecystectomy with patient after she delivers the baby. She will follow up in the surgery office post if she wishes to have elective cholecystectomy Thank you for this consultation, please call with questions or concerns. D/W Dr. Alfredo.
[2017-05-12] MEDS ORDERED: CELESTONE SOLUSPAN IM SCH (10:00)
[2017-05-12] MEDS: ZOFRAN IV PRN (10:13)
[2017-05-12] MEDS: NORMODYNE PO SCH ×2 (10:15→21:54)
[2017-05-12] MEDS: PRENATAL VITAMIN PO SCH (10:20)
[2017-05-12] MEDS: VALTREX PO SCH (10:20)
[2017-05-12] MEDS: ALUM-MAG HYDROX-SIMETH 200-200-20MG/5ML PO PRN ×2 (10:20→22:44)
[2017-05-12] MEDS: FEOSOL PO SCH ×2 (10:21→21:54)
[2017-05-12] MEDS: STADOL IV PRN ×2 (10:24→15:57)
[2017-05-12] MEDS ORDERED: KCL 10MEQ/100ML 10 MEQ/100 ML BAG IV PRN (11:01)
[2017-05-12] MEDS ORDERED: KCL 40 MEQ in NACL 0.9% 500 ML 500 ML IV ONE (11:30)
[2017-05-12 12:28] LABS: Creatinine 24 Hour,Urine 0.9 (0.8-2.8); Creatinine,Urine 52.7 mg/dL (0.1-20.0)
--- NOTE | 2017-05-13 02:07 | Consultation ---
History of Present Illness Consult date: 05/11/17 Requesting physician: WANDER MENDEZ Reason for consult: prematurity (34 week with hypertension) Gay Documentation - Maternal Info Maternal Blood Type: A (+) positive HbsAg: Negative HIV: Negative RPR/VDRL: Non-reactive Chlamydia: Negative Gonorrhea: Negative Herpes: Positive Group Beta Strep: Negative Rubella: Immune - information: Height 4 ft 11 in Medications and Allergies Allergies Allergy/AdvReac Type Severity Reaction Status Date / Time No Known Allergies Allergy Unverified 05/10/17 17:31 Home Medications Medication Instructions Recorded Confirmed Last Taken Type Aspirin BABY CHEW TAB 81 mg PO QDAY 05/10/17 05/10/17 Unknown History Docusate Sodium [Colace CAP] 1 tab PO QDAY 05/10/17 05/10/17 Unknown History Labetalol 100 mg PO BID 05/10/17 05/10/17 05/10/17 10:00 History Valacyclovir HCl [Valtrex] 500 mg PO QDAY 05/10/17 05/10/17 Unknown History Active Meds: Active Medications Acetaminophen (Tylenol) 650 mg PO Q4H PRN PRN Reason: Pain MILD(1-3)/Fever >100.5/VERMA Last Admin: 05/11/17 19:36 Dose: 650 mg Al Hydrox/Mg Hydrox/Simethicone (Alum-Mag Hydrox-Simeth [phone]/5ml) 30 ml PO Q6H PRN PRN Reason: Indigestion Last Admin: 05/12/17 22:44 Dose: 30 ml Butorphanol Tartrate (Stadol) 2 mg IV Q2H PRN PRN Reason: Labor Pain Last Admin: 05/12/17 15:57 Dose: 2 mg Diphenhydramine HCl (Benadryl) 25 mg PO Q6H PRN PRN Reason: Itching Docusate Sodium (Colace) 100 mg PO Q12H PRN PRN Reason: Constipation Ferrous Sulfate (Feosol) 325 mg PO BID [facility] Last Admin: 05/12/17 21:54 Dose: 325 mg Hydralazine HCl (Apresoline) 5 mg IV Q30MIN PRN PRN Reason: Hypertension Lactated Ringer's (Lactated Ringers) 1,000 mls @ 125 mls/hr IV DIRECT VIPIN Parenteral Electrolytes (Normosol-R Ph 7.4) 1,000 mls @ 125 mls/hr IV DIRECT [facility] Last Admin: 05/12/17 21:50 Dose: 125 mls/hr Labetalol HCl (Normodyne) 200 mg PO BID [facility] Last Admin: 05/12/17 21:54 Dose: 200 mg Multivitamins/Iron/Calcium ( Vitamin) 1 each PO QDAY [facility] Last Admin: 05/12/17 10:20 Dose: Not Given Ondansetron HCl (Zofran) 4 mg IV Q6H PRN PRN Reason: Nausea And Vomiting Last Admin: 05/12/17 10:13 Dose: 4 mg Valacyclovir HCl (Valtrex) 500 mg PO QDAY [facility] Last Admin: 05/12/17 10:20 Dose: Not Given Zolpidem Tartrate (Ambien) 10 mg PO QHS PRN PRN Reason: Insomnia Last Admin: 05/12/17 21:54 Dose: 10 mg Exam Vital Signs Pulse BP 71 150/85 05/10/17 16:46 05/10/17 16:46 Temp Pulse Resp BP Pulse Ox 98.9 F 114 H 20 142/89 97 05/13/17 01:39 05/13/17 01:55 05/13/17 01:39 05/13/17 01:55 05/13/17 01:52 Results - Laboratory Findings 05/11/17 14:48 05/11/17 14:48 Abnormal lab results 05/12/17 Range/Units 07:13 Urine Creatinine 52.7 H (0.1-20.0) mg/dL Assessment and Plan - Patient Problems (1) 34 weeks gestation of Onset Date: 05/11/17 Current Visit: Yes Status: Acute Plan to address problem: Ms Velázquez is a 26-year-old GP3 with BURKE 06/20/2017 with an expected EGA of 34 weeks and 2 days. She was admitted due to chronic hypertension and labor on 05/10/2017. Estimated weight on ultrasound of 05/07 was 1887gms (5th percentile) The following issues were discussed with Ms Velázquze 1. Attendance of the NICU team at delivery to provide resuscitation and transfer of baby to the NICU for further management 2. Complications that may arise from prematurity at 34 weeks which include but not limited to, respiratory distress syndrome, Jaundice, Feeding problems. Risk of thrombocytopenia and leukopenia due to hypertension. Risk of hypoglycemia due to IUGR Ms. Velázquez expressed understanding and all her questions were answered Total time spent doing consult was 20 minutes (2) IUGR (intrauterine growth restriction) Onset Date: 05/11/17 Current Visit: Yes Status: Acute (3) Chronic hypertension affecting Onset Date: 05/11/17 Current Visit: Yes Status: Chronic
[2017-05-13] MEDS: STADOL IV PRN ×2 (04:50→22:33)
[2017-05-13] MEDS: NORMOSOL-R PH 7.4 1,000 ML IV SCH ×2 (04:54→14:14)
[2017-05-13] MEDS: ZOFRAN IV PRN (08:31)
--- NOTE | 2017-05-13 09:21 | Progress Note ---
Assessment and Plan - Patient Problems (1) 34 weeks gestation of Onset Date: 05/11/17 Current Visit: Yes Status: Acute (2) uterine contractions Current Visit: Yes Status: Acute Plan to address problem: Patient denies any contractions now. Celestone for FLM completed. (3) Chronic hypertension affecting Onset Date: 05/11/17 Current Visit: Yes Status: Chronic Plan to address problem: Continue labetolol. Monitor BP. Toxemia labs today. (4) IUGR (intrauterine growth restriction) Onset Date: 05/11/17 Current Visit: Yes Status: Acute (5) Hypokalemia Onset Date: 05/11/17 Current Visit: Yes Status: Acute Plan to address problem: Pt was given K+ replacement. Will monitor level. (6) Obesity (BMI 30-39.9) Onset Date: 05/11/17 Current Visit: Yes Status: Chronic Subjective - Subjective Date of service: 05/13/17 Principal diagnosis: IUP @ 34 3/7 weeks; Chronic hypertension w superimposed preeclampsia; IUGR Interval history: Patient was admitted for contractions, elevated BP, and choleliothiasis 3 days ago. Initial exam showed the cervix to be 2-3 cm/50%/-2. Her contractions later stopped. Her BP was in the 150/90's, toxemia labs were normal. 24-hr urine showed 125 mg of protein. She was given labetolol. She was given celestone for FLM. This AM, she denies any contractions, fluid leakage or bleeding. She reports good movement. Current BP is 129/70. tracing has been CAT1. BPP was 8/8 but IUGR with growth in the 7th percentile. APA consult was done. Patient reports: movement normal, contractions, no new complaints, no loss of fluid, no vaginal bleeding Objective - Vital Signs Vital Signs: Vital Signs - 12hr 05/12/17 05/12/17 05/12/17 21:54 21:57 22:00 Temperature 98.7 F Pulse Rate 11 L 112 H Respiratory 22 Rate Blood Pressure 132/71 132/71 Blood Pressure [Right] O2 Sat by Pulse Oximetry 05/12/17 05/12/17 05/12/17 22:42 22:47 22:52 Temperature Pulse Rate 117 H 105 H 101 H Respiratory Rate Blood Pressure Blood Pressure [Right] O2 Sat by Pulse 98 98 98 Oximetry 03/18/18 03/18/18 03/18/18 22:56 22:57 23:02 Temperature Pulse Rate 109 H 106 H 113 H Respiratory Rate Blood Pressure 128/67 Blood Pressure [Right] O2 Sat by Pulse 97 98 Oximetry 05/12/17 05/12/17 05/12/17 23:04 23:07 23:12 Temperature Pulse Rate 105 H 107 H 104 H Respiratory Rate Blood Pressure Blood Pressure [Right] O2 Sat by Pulse 94 98 98 Oximetry 05/12/17 05/12/17 05/12/17 23:17 23:22 23:27 Temperature Pulse Rate 105 H 109 H 101 H Respiratory Rate Blood Pressure Blood Pressure [Right] O2 Sat by Pulse 98 98 97 Oximetry 05/12/17 05/12/17 05/12/17 23:32 23:37 23:42 Temperature Pulse Rate 107 H 108 H 100 H Respiratory Rate Blood Pressure Blood Pressure [Right] O2 Sat by Pulse 97 97 97 Oximetry 05/12/17 05/12/17 05/12/17 23:47 23:52 23:55 Temperature Pulse Rate 109 H 105 H 108 H Respiratory Rate Blood Pressure 119/64 Blood Pressure [Right] O2 Sat by Pulse 96 96 Oximetry 05/12/17 05/13/17 05/13/17 23:57 00:02 00:07 Temperature Pulse Rate 102 H 107 H 106 H Respiratory Rate Blood Pressure Blood Pressure [Right] O2 Sat by Pulse 97 97 97 Oximetry 05/13/17 05/13/17 05/13/17 00:12 00:17 00:22 Temperature Pulse Rate 107 H 109 H 110 H Respiratory Rate Blood Pressure Blood Pressure [Right] O2 Sat by Pulse 96 97 96 Oximetry 05/13/17 05/13/17 05/13/17 00:27 00:32 00:37 Temperature Pulse Rate 110 H 113 H 109 H Respiratory Rate Blood Pressure Blood Pressure [Right] O2 Sat by Pulse 97 97 97 Oximetry 05/13/17 05/13/17 05/13/17 00:42 00:47 00:52 Temperature Pulse Rate 111 H 109 H 109 H Respiratory Rate Blood Pressure Blood Pressure [Right] O2 Sat by Pulse 96 97 97 Oximetry 05/13/17 05/13/17 05/13/17 00:56 00:57 01:02 Temperature Pulse Rate 115 H 113 H 109 H Respiratory Rate Blood Pressure 111/62 Blood Pressure [Right] O2 Sat by Pulse 96 96 Oximetry 05/13/17 05/13/17 05/13/17 01:07 01:12 01:17 Temperature Pulse Rate 104 H 111 H 124 H Respiratory Rate Blood Pressure Blood Pressure [Right] O2 Sat by Pulse 97 97 96 Oximetry 05/13/17 05/13/17 05/13/17 01:22 01:27 01:32 Temperature Pulse Rate 115 H 115 H 114 H Respiratory Rate Blood Pressure Blood Pressure [Right] O2 Sat by Pulse 97 97 97 Oximetry 05/13/17 05/13/17 05/13/17 01:37 01:39 01:42 Temperature 98.9 F Pulse Rate 115 H 104 H Respiratory 20 Rate Blood Pressure Blood Pressure [Right] O2 Sat by Pulse 96 97 Oximetry 05/13/17 05/13/17 05/13/17 01:47 01:52 01:55 Temperature Pulse Rate 104 H 105 H 114 H Respiratory Rate Blood Pressure 142/89 Blood Pressure [Right] O2 Sat by Pulse 96 97 Oximetry 05/13/17 05/13/17 05/13/17 02:12 02:17 02:18 Temperature Pulse Rate 118 H 107 H 113 H Respiratory Rate Blood Pressure Blood Pressure [Right] O2 Sat by Pulse 93 95 94 Oximetry 05/13/17 05/13/17 05/13/17 02:22 02:25 02:27 Temperature Pulse Rate 111 H 108 H 105 H Respiratory Rate Blood Pressure Blood Pressure [Right] O2 Sat by Pulse 93 94 94 Oximetry 05/13/17 05/13/17 05/13/17 02:31 02:32 02:36 Temperature Pulse Rate 111 H 108 H 109 H Respiratory Rate Blood Pressure Blood Pressure [Right] O2 Sat by Pulse 94 95 94 Oximetry 05/13/17 05/13/17 05/13/17 02:37 02:42 02:43 Temperature Pulse Rate 104 H 108 H 110 H Respiratory Rate Blood Pressure Blood Pressure [Right] O2 Sat by Pulse 95 95 94 Oximetry 05/13/17 05/13/17 05/13/17 02:47 02:51 02:52 Temperature Pulse Rate 105 H 105 H 106 H Respiratory Rate Blood Pressure Blood Pressure [Right] O2 Sat by Pulse 94 94 94 Oximetry 05/13/17 05/13/17 05/13/17 02:55 02:57 02:59 Temperature Pulse Rate 116 H 113 H 112 H Respiratory Rate Blood Pressure 119/79 Blood Pressure [Right] O2 Sat by Pulse 95 93 Oximetry 05/13/17 05/13/17 05/13/17 03:02 03:05 03:07 Temperature Pulse Rate 105 H 105 H 107 H Respiratory Rate Blood Pressure Blood Pressure [Right] O2 Sat by Pulse 95 94 95 Oximetry 05/13/17 05/13/17 05/13/17 03:11 03:12 03:17 Temperature Pulse Rate 108 H 108 H 112 H Respiratory Rate Blood Pressure Blood Pressure [Right] O2 Sat by Pulse 94 94 93 Oximetry 05/13/17 05/13/17 05/13/17 03:22 03:23 03:27 Temperature Pulse Rate 107 H 109 H 107 H Respiratory Rate Blood Pressure Blood Pressure [Right] O2 Sat by Pulse 94 94 94 Oximetry 05/13/17 05/13/17 05/13/17 03:28 03:32 03:34 Temperature Pulse Rate 110 H 105 H 110 H Respiratory Rate Blood Pressure Blood Pressure [Right] O2 Sat by Pulse 94 95 94 Oximetry 05/13/17 05/13/17 05/13/17 03:37 03:39 03:42 Temperature Pulse Rate 104 H 109 H 103 H Respiratory Rate Blood Pressure Blood Pressure [Right] O2 Sat by Pulse 95 94 95 Oximetry 05/13/17 05/13/17 05/13/17 03:45 03:47 03:51 Temperature Pulse Rate 110 H 105 H 109 H Respiratory Rate Blood Pressure Blood Pressure [Right] O2 Sat by Pulse 94 95 94 Oximetry 05/13/17 05/13/17 05/13/17 03:52 03:55 03:57 Temperature Pulse Rate 112 H 117 H 112 H Respiratory Rate Blood Pressure 129/71 Blood Pressure [Right] O2 Sat by Pulse 94 95 Oximetry 05/13/17 05/13/17 05/13/17 04:02 04:07 04:12 Temperature Pulse Rate 111 H 116 H 114 H Respiratory Rate Blood Pressure Blood Pressure [Right] O2 Sat by Pulse 95 95 96 Oximetry 05/13/17 05/13/17 05/13/17 04:17 04:22 04:27 Temperature Pulse Rate 113 H 115 H 114 H Respiratory Rate Blood Pressure Blood Pressure [Right] O2 Sat by Pulse 95 96 97 Oximetry 05/13/17 05/13/17 05/13/17 04:32 05:55 06:55 Temperature Pulse Rate 117 H 106 H 112 H Respiratory Rate Blood Pressure 130/69 135/75 Blood Pressure [Right] O2 Sat by Pulse 97 Oximetry 05/13/17 05/13/17 05/13/17 07:42 07:44 07:45 Temperature 98.6 F Pulse Rate 115 H 117 H 115 H Respiratory 18 Rate Blood Pressure 142/97 Blood Pressure 142/97 [Right] O2 Sat by Pulse 97 98 Oximetry 05/13/17 05/13/17 05/13/17 07:47 07:49 07:54 Temperature Pulse Rate 118 H 109 H 122 H Respiratory Rate Blood Pressure Blood Pressure [Right] O2 Sat by Pulse 92 98 97 Oximetry 05/13/17 05/13/17 05/13/17 07:57 07:59 08:04 Temperature Pulse Rate 115 H 118 H 110 H Respiratory Rate Blood Pressure 131/66 Blood Pressure [Right] O2 Sat by Pulse 98 98 Oximetry 05/13/17 05/13/17 05/13/17 08:09 08:14 08:19 Temperature Pulse Rate 102 H 97 H 98 H Respiratory Rate Blood Pressure Blood Pressure [Right] O2 Sat by Pulse 97 98 97 Oximetry 05/13/17 05/13/17 05/13/17 08:24 08:29 08:34 Temperature Pulse Rate 100 H 118 H 105 H Respiratory Rate Blood Pressure Blood Pressure [Right] O2 Sat by Pulse 98 97 98 Oximetry 05/13/17 05/13/17 05/13/17 08:39 08:44 08:49 Temperature Pulse Rate 103 H 103 H 101 H Respiratory Rate Blood Pressure Blood Pressure [Right] O2 Sat by Pulse 97 97 97 Oximetry 05/13/17 05/13/17 05/13/17 08:51 08:54 08:55 Temperature Pulse Rate 104 H 95 H 100 H Respiratory Rate Blood Pressure 123/78 Blood Pressure [Right] O2 Sat by Pulse 94 96 Oximetry 05/13/17 05/13/17 05/13/17 08:57 08:59 09:04 Temperature Pulse Rate 98 H 105 H 103 H Respiratory Rate Blood Pressure Blood Pressure [Right] O2 Sat by Pulse 94 96 94 Oximetry 05/13/17 05/13/17 05/13/17 09:09 09:14 09:15 Temperature Pulse Rate 106 H 109 H 117 H Respiratory Rate Blood Pressure Blood Pressure [Right] O2 Sat by Pulse 96 97 92 Oximetry - Exam Narrative Exam: Abd: soft, mild RUQ TN. Uterus gravid. Ext: + edema +1, no calf TN, no Sandy's sign. Cardiovascular: Normal S1, Normal S2 Lungs: Clear to auscultation Vulva: both: normal FHR: category 1 Uterine Contraction Monitor Mode: External Cervical Dilatation: 2 Cervical Effacement Percentage: 50 station: -2 Uterine Contraction Pattern: Absent Deep Tendon Reflex Grade: Normal +2 - Labs Labs: Abnormal Labs 05/10/17 05/10/17 05/10/17 17:38 17:38 Unknown RBC 3.35 L Hgb 8.9 L Hct 27.3 L MCH 27 L RDW 15.9 H Sodium 136 L Potassium 3.0 L Chloride 95.8 L BUN 2 L Creatinine 0.5 L Uric Acid Alkaline Phosphatase 131 H Lactate Dehydrogenase Total Protein 6.0 L Albumin 2.8 L Ur Specific [place] 1.001 L Urine Creatinine 05/11/17 05/11/17 05/11/17 07:56 14:48 14:48 RBC 3.51 L Hgb 9.3 L Hct 29.0 L MCH 26 L RDW 16.0 H Sodium Potassium 3.1 L Chloride BUN Creatinine 0.5 L Uric Acid 8.4 H Alkaline Phosphatase Lactate Dehydrogenase 219 H Total Protein Albumin Ur Specific [place] Urine Creatinine 05/12/17 07:13 RBC Hgb Hct MCH RDW Sodium Potassium Chloride BUN Creatinine Uric Acid Alkaline Phosphatase Lactate Dehydrogenase Total Protein Albumin Ur Specific [place] Urine Creatinine 52.7 H Laboratory Results - last 24 hr 05/12/17 07:13 Urine Total Volume 1700 Urine Creatinine 52.7 H Ur Creatinine 24 Hour 0.9 Ur Total Protein 24 Hr 170.00 Urine Total Protein 10
[2017-05-13 10:06] LABS: Hematocrit 23.7 % (30.3-42.9); Hemoglobin 7.3 gm/dl (10.1-14.3); Mean Corpuscular HGB Conc 31 % (30-34); Mean Corpuscular Hemoglobin 26 pg (28-32); Mean Corpuscular Volume 85 fl (79-97); Platelet Count 349 K/mm3 (140-440); Red Cell Distribution Width 16.1 % (13.2-15.2)
[2017-05-13] MEDS: NORMODYNE PO SCH ×2 (11:03→22:31)
[2017-05-13] MEDS: TYLENOL PO PRN (11:42)
[2017-05-13 14:56] LABS: Uric Acid 9.8 mg/dL (3.5-7.6)
--- NOTE | 2017-05-13 18:22 | Progress Note ---
Assessment and Plan - Patient Problems (1) 34 weeks gestation of Onset Date: 05/11/17 Current Visit: Yes Status: Acute (2) uterine contractions Current Visit: Yes Status: Acute Plan to address problem: [place] shows irritability but pt states that she feels more contractions. Cervix 2 -3 cm/50%/-3, unchanged. Celestone for FLM completed. Magnesium ordered. Ampicillin for GBS prophylaxis. (3) IUGR (intrauterine growth restriction) Onset Date: 05/11/17 Current Visit: Yes Status: Acute Plan to address problem: Will continue monitoring. Will do BPP in AM. (4) Hypokalemia Onset Date: 05/11/17 Current Visit: Yes Status: Acute Plan to address problem: Pt was given K+ replacement. Last K+ level was 3.5. (5) Obesity (BMI 30-39.9) Onset Date: 05/11/17 Current Visit: Yes Status: Chronic (6) Pre-eclampsia superimposed on chronic hypertension Current Visit: Yes Status: Acute Plan to address problem: Magnesium sulfate ordered. Will monitor BP, DTRs, Mg level Q 6 hrs, urine output. Continue labetolol BID. Subjective - Subjective Date of service: 05/13/17 Principal diagnosis: IUP @ 34 3/7 weeks, superimposed preeclampsia on chronic HTN, , IUGR Interval history: Patient was admitted for contractions, elevated BP, and choleliothiasis 3 days ago. Initial exam showed the cervix to be 2-3 cm/50%/-2. Her contractions later stopped. Her BP was in the 150/90's, toxemia labs were normal. 24-hr urine showed 125 mg of protein. She was given labetolol. She was given celestone for FLM. tracing has been CAT1. BPP was 8/8 but showed IUGR with growth in the 7th percentile. APA consult was done. This evening, she complains of having contractions, but denies any fluid leakage or bleeding. She reports good movement. Since earlier today, her BP has been labile between 120/80's-150/90's. DTR's are brisk. FHT: CAT1, toco: occasional irritability, cervix: unchanged from admission. I discussed starting magnesium sulfate with the patient for PTL, neuroprotection and pre-eclampsia. Patient reports: movement normal, contractions, no new complaints, no loss of fluid, no vaginal bleeding Objective - Vital Signs Vital Signs: Vital Signs - 12hr 05/13/17 05/13/17 05/13/17 06:55 07:42 07:44 Temperature 98.6 F Pulse Rate 112 H 115 H 117 H Respiratory 18 Rate Blood Pressure 135/75 Blood Pressure 142/97 [Right] O2 Sat by Pulse 97 98 Oximetry 05/13/17 05/13/17 05/13/17 07:45 07:47 07:49 Temperature Pulse Rate 115 H 118 H 109 H Respiratory Rate Blood Pressure 142/97 Blood Pressure [Right] O2 Sat by Pulse 92 98 Oximetry 05/13/17 05/13/17 05/13/17 07:54 07:57 07:59 Temperature Pulse Rate 122 H 115 H 118 H Respiratory Rate Blood Pressure 131/66 Blood Pressure [Right] O2 Sat by Pulse 97 98 Oximetry 05/13/17 05/13/17 05/13/17 08:04 08:09 08:14 Temperature Pulse Rate 110 H 102 H 97 H Respiratory Rate Blood Pressure Blood Pressure [Right] O2 Sat by Pulse 98 97 98 Oximetry 05/13/17 05/13/17 05/13/17 08:19 08:24 08:29 Temperature Pulse Rate 98 H 100 H 118 H Respiratory Rate Blood Pressure Blood Pressure [Right] O2 Sat by Pulse 97 98 97 Oximetry 05/13/17 05/13/17 05/13/17 08:34 08:39 08:44 Temperature Pulse Rate 105 H 103 H 103 H Respiratory Rate Blood Pressure Blood Pressure [Right] O2 Sat by Pulse 98 97 97 Oximetry 05/13/17 05/13/17 05/13/17 08:49 08:51 08:54 Temperature Pulse Rate 101 H 104 H 95 H Respiratory Rate Blood Pressure Blood Pressure [Right] O2 Sat by Pulse 97 94 96 Oximetry 05/13/17 05/13/17 05/13/17 08:55 08:57 08:59 Temperature Pulse Rate 100 H 98 H 105 H Respiratory Rate Blood Pressure 123/78 Blood Pressure [Right] O2 Sat by Pulse 94 96 Oximetry 05/13/17 05/13/17 05/13/17 09:04 09:09 09:14 Temperature Pulse Rate 103 H 106 H 109 H Respiratory Rate Blood Pressure Blood Pressure [Right] O2 Sat by Pulse 94 96 97 Oximetry 05/13/17 05/13/17 05/13/17 09:15 09:19 09:24 Temperature Pulse Rate 117 H 96 H 95 H Respiratory Rate Blood Pressure Blood Pressure [Right] O2 Sat by Pulse 92 95 96 Oximetry 05/13/17 05/13/17 05/13/17 09:28 09:29 09:34 Temperature Pulse Rate 106 H 94 H 103 H Respiratory Rate Blood Pressure Blood Pressure [Right] O2 Sat by Pulse 94 95 95 Oximetry 05/13/17 05/13/17 05/13/17 09:39 09:44 09:45 Temperature Pulse Rate 100 H 96 H 95 H Respiratory Rate Blood Pressure Blood Pressure [Right] O2 Sat by Pulse 96 95 94 Oximetry 05/13/17 05/13/17 05/13/17 09:49 09:54 09:55 Temperature Pulse Rate 101 H 90 99 H Respiratory Rate Blood Pressure 127/67 Blood Pressure [Right] O2 Sat by Pulse 95 96 Oximetry 05/13/17 05/13/17 05/13/17 09:56 09:59 10:04 Temperature Pulse Rate 108 H 97 H 99 H Respiratory Rate Blood Pressure Blood Pressure [Right] O2 Sat by Pulse 94 98 96 Oximetry 05/13/17 05/13/17 05/13/17 10:09 10:14 10:19 Temperature Pulse Rate 95 H 96 H 92 H Respiratory Rate Blood Pressure Blood Pressure [Right] O2 Sat by Pulse 97 97 97 Oximetry 05/13/17 05/13/17 05/13/17 10:24 10:29 10:34 Temperature Pulse Rate 99 H 99 H 95 H Respiratory Rate Blood Pressure Blood Pressure [Right] O2 Sat by Pulse 96 96 96 Oximetry 05/13/17 05/13/17 05/13/17 10:39 10:44 10:49 Temperature Pulse Rate 93 H 100 H 90 Respiratory Rate Blood Pressure Blood Pressure [Right] O2 Sat by Pulse 97 97 97 Oximetry 05/13/17 05/13/17 05/13/17 10:54 10:55 10:59 Temperature Pulse Rate 102 H 103 H 103 H Respiratory Rate Blood Pressure 130/76 Blood Pressure [Right] O2 Sat by Pulse 98 97 Oximetry 05/13/17 05/13/17 05/13/17 11:03 11:04 11:09 Temperature Pulse Rate 100 H 101 H 115 H Respiratory Rate Blood Pressure 130/76 Blood Pressure [Right] O2 Sat by Pulse 97 97 Oximetry 05/13/17 05/13/17 05/13/17 11:14 11:19 11:24 Temperature Pulse Rate 103 H 101 H 105 H Respiratory Rate Blood Pressure Blood Pressure [Right] O2 Sat by Pulse 98 96 95 Oximetry 05/13/17 05/13/17 05/13/17 11:35 11:38 11:39 Temperature 98.4 F Pulse Rate 86 93 H 92 H Respiratory 18 Rate Blood Pressure 162/91 Blood Pressure 162/91 [Right] O2 Sat by Pulse 97 98 Oximetry 05/13/17 05/13/17 05/13/17 11:43 11:48 11:49 Temperature Pulse Rate 88 111 H 111 H Respiratory Rate Blood Pressure Blood Pressure [Right] O2 Sat by Pulse 98 94 93 Oximetry 05/13/17 05/13/17 05/13/17 11:53 11:55 11:58 Temperature Pulse Rate 99 H 88 93 H Respiratory Rate Blood Pressure 131/74 Blood Pressure [Right] O2 Sat by Pulse 98 99 Oximetry 05/13/17 05/13/17 05/13/17 12:03 12:08 12:13 Temperature Pulse Rate 90 110 H 100 H Respiratory Rate Blood Pressure Blood Pressure [Right] O2 Sat by Pulse 97 98 99 Oximetry 05/13/17 05/13/17 05/13/17 12:18 12:23 12:28 Temperature Pulse Rate 90 96 H 95 H Respiratory Rate Blood Pressure Blood Pressure [Right] O2 Sat by Pulse 97 97 97 Oximetry 05/13/17 05/13/17 05/13/17 12:33 12:38 12:43 Temperature Pulse Rate 99 H 105 H 95 H Respiratory Rate Blood Pressure Blood Pressure [Right] O2 Sat by Pulse 96 97 97 Oximetry 05/13/17 05/13/17 05/13/17 12:48 12:53 12:55 Temperature Pulse Rate 94 H 108 H 101 H Respiratory Rate Blood Pressure 152/80 Blood Pressure [Right] O2 Sat by Pulse 96 96 Oximetry 05/13/17 05/13/17 05/13/17 12:58 13:03 13:08 Temperature Pulse Rate 100 H 107 H 92 H Respiratory Rate Blood Pressure Blood Pressure [Right] O2 Sat by Pulse 97 97 97 Oximetry 05/13/17 05/13/17 05/13/17 13:13 13:18 13:23 Temperature Pulse Rate 101 H 97 H 106 H Respiratory Rate Blood Pressure Blood Pressure [Right] O2 Sat by Pulse 97 97 96 Oximetry 05/13/17 05/13/17 05/13/17 13:28 13:33 13:38 Temperature Pulse Rate 98 H 103 H 94 H Respiratory Rate Blood Pressure Blood Pressure [Right] O2 Sat by Pulse 96 96 96 Oximetry 05/13/17 05/13/17 05/13/17 13:43 13:48 13:53 Temperature Pulse Rate 106 H 106 H 103 H Respiratory Rate Blood Pressure Blood Pressure [Right] O2 Sat by Pulse 97 98 98 Oximetry 05/13/17 05/13/17 05/13/17 13:55 13:58 14:03 Temperature Pulse Rate 103 H 95 H 102 H Respiratory Rate Blood Pressure 146/87 Blood Pressure [Right] O2 Sat by Pulse 97 97 Oximetry 05/13/17 05/13/17 05/13/17 14:08 14:13 14:18 Temperature Pulse Rate 98 H 92 H 95 H Respiratory Rate Blood Pressure Blood Pressure [Right] O2 Sat by Pulse 97 96 96 Oximetry 05/13/17 05/13/17 05/13/17 14:23 14:28 14:33 Temperature Pulse Rate 99 H 92 H 99 H Respiratory Rate Blood Pressure Blood Pressure [Right] O2 Sat by Pulse 97 97 97 Oximetry 05/13/17 05/13/17 05/13/17 14:38 14:43 14:48 Temperature Pulse Rate 96 H 96 H 98 H Respiratory Rate Blood Pressure Blood Pressure [Right] O2 Sat by Pulse 98 97 97 Oximetry 05/13/17 05/13/17 05/13/17 14:53 14:56 14:58 Temperature Pulse Rate 96 H 97 H 90 Respiratory Rate Blood Pressure 148/88 Blood Pressure [Right] O2 Sat by Pulse 98 97 Oximetry 05/13/17 05/13/17 05/13/17 15:03 15:08 15:13 Temperature Pulse Rate 99 H 91 H 89 Respiratory Rate Blood Pressure Blood Pressure [Right] O2 Sat by Pulse 97 97 97 Oximetry 05/13/17 05/13/17 05/13/17 15:18 15:23 15:28 Temperature Pulse Rate 91 H 90 91 H Respiratory Rate Blood Pressure Blood Pressure [Right] O2 Sat by Pulse 97 97 96 Oximetry 05/13/17 05/13/17 05/13/17 15:33 15:38 15:43 Temperature Pulse Rate 89 100 H Respiratory Rate Blood Pressure Blood Pressure [Right] O2 Sat by Pulse 97 97 93 Oximetry 05/13/17 05/13/17 05/13/17 15:48 15:53 15:55 Temperature Pulse Rate 87 90 100 H Respiratory Rate Blood Pressure 136/82 Blood Pressure [Right] O2 Sat by Pulse 98 98 Oximetry 05/13/17 05/13/17 05/13/17 15:58 16:03 16:08 Temperature Pulse Rate 97 H 102 H 100 H Respiratory Rate Blood Pressure Blood Pressure [Right] O2 Sat by Pulse 98 98 99 Oximetry 05/13/17 05/13/17 05/13/17 16:13 16:18 16:23 Temperature Pulse Rate 103 H 98 H 95 H Respiratory Rate Blood Pressure Blood Pressure [Right] O2 Sat by Pulse 98 98 98 Oximetry 05/13/17 05/13/17 05/13/17 16:28 16:33 16:38 Temperature Pulse Rate 105 H 99 H 92 H Respiratory Rate Blood Pressure Blood Pressure [Right] O2 Sat by Pulse 98 98 98 Oximetry 05/13/17 05/13/17 05/13/17 16:39 16:42 16:43 Temperature 99.2 F Pulse Rate 103 H 106 H 98 H Respiratory 18 Rate Blood Pressure 144/84 Blood Pressure 144/84 [Right] O2 Sat by Pulse 99 99 Oximetry 05/13/17 05/13/17 05/13/17 16:48 16:53 16:55 Temperature Pulse Rate 120 H 108 H 125 H Respiratory Rate Blood Pressure 148/78 Blood Pressure [Right] O2 Sat by Pulse 98 96 Oximetry 05/13/17 05/13/17 05/13/17 16:58 17:01 17:03 Temperature Pulse Rate 113 H 97 H 104 H Respiratory Rate Blood Pressure Blood Pressure [Right] O2 Sat by Pulse 98 93 95 Oximetry 05/13/17 05/13/17 05/13/17 17:08 17:13 17:18 Temperature Pulse Rate 94 H 94 H 114 H Respiratory Rate Blood Pressure Blood Pressure [Right] O2 Sat by Pulse 96 97 95 Oximetry 05/13/17 05/13/17 05/13/17 17:32 17:37 17:42 Temperature Pulse Rate 83 91 H 99 H Respiratory Rate Blood Pressure Blood Pressure [Right] O2 Sat by Pulse 97 97 96 Oximetry 05/13/17 05/13/17 05/13/17 17:47 17:52 17:56 Temperature Pulse Rate 103 H 90 94 H Respiratory Rate Blood Pressure 131/71 Blood Pressure [Right] O2 Sat by Pulse 96 97 Oximetry 05/13/17 05/13/17 05/13/17 17:57 18:02 18:07 Temperature Pulse Rate 98 H 97 H 106 H Respiratory Rate Blood Pressure Blood Pressure [Right] O2 Sat by Pulse 98 98 97 Oximetry 05/13/17 05/13/17 18:12 18:17 Temperature Pulse Rate 92 H 96 H Respiratory Rate Blood Pressure Blood Pressure [Right] O2 Sat by Pulse 97 98 Oximetry - Exam Narrative Exam: Abd: soft, mild RUQ TN. Uterus gravid. Ext: + edema +1, no calf TN, no Sandy's sign. DTR's elevated. FHT: CAT1, toco: occasional irritability. Cervix: unchanged from admission. Cardiovascular: Normal S1, Normal S2 Lungs: Clear to auscultation Vulva: both: normal FHR: category 1 Uterine Contraction Monitor Mode: External Cervical Dilatation: 2 Cervical Effacement Percentage: 50 station: -3 Uterine Contraction Pattern: Irregular Deep Tendon Reflex Grade: Normal but brisk +3 - Labs Labs: Abnormal Labs 05/10/17 05/10/17 05/10/17 17:38 17:38 Unknown RBC 3.35 L Hgb 8.9 L Hct 27.3 L MCH 27 L RDW 15.9 H Sodium 136 L Potassium 3.0 L Chloride 95.8 L BUN 2 L Creatinine 0.5 L Uric Acid Alkaline Phosphatase 131 H Lactate Dehydrogenase Total Protein 6.0 L Albumin 2.8 L Ur Specific [place] 1.001 L Urine Creatinine 05/11/17 05/11/17 05/11/17 07:56 14:48 14:48 RBC 3.51 L Hgb 9.3 L Hct 29.0 L MCH 26 L RDW 16.0 H Sodium Potassium 3.1 L Chloride BUN Creatinine 0.5 L Uric Acid 8.4 H Alkaline Phosphatase Lactate Dehydrogenase 219 H Total Protein Albumin Ur Specific [place] Urine Creatinine 05/12/17 05/13/17 05/13/17 07:13 08:35 08:35 RBC Hgb Hct MCH RDW Sodium Potassium 3.5 L Chloride BUN Creatinine 0.6 L Uric Acid 9.8 H Alkaline Phosphatase Lactate Dehydrogenase 201 H Total Protein Albumin Ur Specific [place] Urine Creatinine 52.7 H 05/13/17 09:33 RBC 2.80 L Hgb 7.3 L Hct 23.7 L MCH 26 L RDW 16.1 H Sodium Potassium Chloride BUN Creatinine Uric Acid Alkaline Phosphatase Lactate Dehydrogenase Total Protein Albumin Ur Specific [place] Urine Creatinine Laboratory Results - last 24 hr 05/13/17 05/13/17 05/13/17 08:35 08:35 08:35 WBC RBC Hgb Hct MCV MCH MCHC RDW Plt Count Potassium 3.5 L Creatinine 0.6 L Estimated GFR > 60 Uric Acid 9.8 H AST 33 ALT 15 Lactate Dehydrogenase 201 H 05/13/17 09:33 WBC 6.0 RBC 2.80 L Hgb 7.3 L Hct 23.7 L MCV 85 MCH 26 L MCHC 31 RDW 16.1 H Plt Count 349 Potassium Creatinine Estimated GFR Uric Acid AST ALT Lactate Dehydrogenase
[2017-05-13] MEDS: POLYCILLIN/NS 2 GM/100 ML 2 GM/100 ML BAG IV SCH (18:39)
[2017-05-13] MEDS ORDERED: MAGNESIUM SULFATE 4GM/100ML 4 GM/100 ML BAG IV ONE (19:00)
[2017-05-13 19:43] LABS: Bilirubin,Urine NEG (Negative); Blood,Urine NEG (Negative); Color,Urine Yellow (Yellow); Mucus,Urine FEW /HPF; Protein,Urine <15 mg/dL mg/dL (Negative); Urobilinogen,Urine < 2.0 mg/dL (<2.0)
[2017-05-13] MEDS: MAGNESIUM SULFATE 40GM/1000ML 40 GM/1,000 ML BAG IV SCH (20:00)
[2017-05-13] MEDS ORDERED: EMLA TP ONE (23:16)
[2017-05-14] MEDS: POLYCILLIN/NS 2 GM/100 ML 2 GM/100 ML BAG IV SCH ×4 (01:47→20:25)
[2017-05-14] MEDS: ALUM-MAG HYDROX-SIMETH 200-200-20MG/5ML PO PRN ×3 (02:56→20:50)
[2017-05-14] MEDS: NORMOSOL-R PH 7.4 1,000 ML IV SCH (07:25)
[2017-05-14] MEDS: TYLENOL PO PRN ×2 (07:52→19:26)
[2017-05-14] MEDS ORDERED: EMLA TP NR (08:00)
--- NOTE | 2017-05-14 08:54 | Progress Note ---
Assessment and Plan - Patient Problems (1) 34 weeks gestation of Onset Date: 05/11/17 Current Visit: Yes Status: Acute (2) uterine contractions Current Visit: Yes Status: Acute Plan to address problem: Celestone for FLM completed. Magnesium being run at 2gm/hr. Continue Mg level Q 6hrs. Ampicillin for GBS prophylaxis. (3) IUGR (intrauterine growth restriction) Onset Date: 05/11/17 Current Visit: Yes Status: Acute Plan to address problem: Will continue monitoring. Will do BPP this AM. (4) Hypokalemia Onset Date: 05/11/17 Current Visit: Yes Status: Acute Plan to address problem: Pt was given K+ replacement. Last K+ level was 3.5. (5) Obesity (BMI 30-39.9) Onset Date: 05/11/17 Current Visit: Yes Status: Chronic (6) Pre-eclampsia superimposed on chronic hypertension Current Visit: Yes Status: Acute Plan to address problem: Magnesium sulfate being run at 2gm/hr. Continue to monitor BP, DTRs, Mg level Q 6 hrs, urine output. Continue labetolol BID. Subjective - Subjective Date of service: 05/14/17 Principal diagnosis: IUP @ 34 3/7 weeks, superimposed preeclampsia on chronic HTN, , IUGR Interval history: Patient was admitted for contractions, elevated BP, and choleliothiasis 4 days ago. Initial exam showed the cervix to be 2-3 cm/50%/-2. Her contractions later stopped. Her BP was in the 150/90's, toxemia labs were normal. 24-hr urine showed 175 mg of protein. She has chronic HTN and has been on labetolol. She was given celestone for FLM. tracing has been CAT1. BPP was 8/8 but showed IUGR with growth in the 7th percentile. APA consult was done. Yesterday evening, she complained of having contractions, but denied any fluid leakage or bleeding. Her BP has been labile between 120/80's-150/90's. DTR's were brisk. FHT: CAT1, toco: occasional irritability, cervix: unchanged from admission. Magnesium sulfate with the patient for PTL, neuroprotection and superimposed pre -eclampsia was started. Last Mg level was 5.7. This AM, she denies any complaint. She reports good movement. Current BP is in the 120/70's. Patient reports: movement normal, contractions, no new complaints, no loss of fluid, no vaginal bleeding Objective - Vital Signs Vital Signs: Vital Signs - 12hr 05/13/17 05/13/17 05/13/17 20:56 20:57 21:02 Temperature Pulse Rate 96 H 98 H 104 H Respiratory Rate Blood Pressure 137/88 Blood Pressure [Right] O2 Sat by Pulse 96 98 Oximetry 05/13/17 05/13/17 05/13/17 21:26 21:56 22:23 Temperature Pulse Rate 100 H 106 H 101 H Respiratory Rate Blood Pressure 125/68 119/75 Blood Pressure [Right] O2 Sat by Pulse 95 Oximetry 05/13/17 05/13/17 05/13/17 22:25 22:28 22:31 Temperature Pulse Rate 100 H 100 H 104 H Respiratory Rate Blood Pressure 125/74 125/74 Blood Pressure [Right] O2 Sat by Pulse 97 Oximetry 05/13/17 05/13/17 05/13/17 22:33 22:36 22:38 Temperature Pulse Rate 106 H 110 H 101 H Respiratory Rate Blood Pressure Blood Pressure [Right] O2 Sat by Pulse 98 94 96 Oximetry 05/13/17 05/13/17 05/13/17 22:41 22:43 22:48 Temperature Pulse Rate 95 H 99 H 96 H Respiratory Rate Blood Pressure Blood Pressure [Right] O2 Sat by Pulse 93 93 97 Oximetry 05/13/17 05/13/17 05/13/17 22:50 22:53 22:56 Temperature Pulse Rate 104 H 102 H 90 Respiratory Rate Blood Pressure 115/57 Blood Pressure [Right] O2 Sat by Pulse 94 96 Oximetry 05/13/17 05/13/17 05/13/17 22:58 23:03 23:08 Temperature Pulse Rate 96 H 94 H 97 H Respiratory Rate Blood Pressure Blood Pressure [Right] O2 Sat by Pulse 96 97 96 Oximetry 05/13/17 05/13/17 05/13/17 23:11 23:13 23:18 Temperature Pulse Rate 104 H 105 H 111 H Respiratory Rate Blood Pressure Blood Pressure [Right] O2 Sat by Pulse 94 97 96 Oximetry 05/13/17 05/13/17 05/13/17 23:23 23:28 23:33 Temperature Pulse Rate 100 H 111 H 103 H Respiratory Rate Blood Pressure Blood Pressure [Right] O2 Sat by Pulse 96 96 97 Oximetry 05/13/17 05/13/17 05/13/17 23:38 23:41 23:43 Temperature Pulse Rate 97 H 111 H 101 H Respiratory Rate Blood Pressure Blood Pressure [Right] O2 Sat by Pulse 96 93 96 Oximetry 05/13/17 05/13/17 05/13/17 23:48 23:51 23:53 Temperature Pulse Rate 103 H 111 H 101 H Respiratory Rate Blood Pressure Blood Pressure [Right] O2 Sat by Pulse 97 94 100 Oximetry 05/13/17 05/13/17 05/14/17 23:55 23:57 00:02 Temperature Pulse Rate 100 H 106 H 104 H Respiratory Rate Blood Pressure 118/55 Blood Pressure [Right] O2 Sat by Pulse 100 99 Oximetry 05/14/17 05/14/17 05/14/17 00:07 00:12 00:17 Temperature Pulse Rate 113 H 104 H 110 H Respiratory Rate Blood Pressure Blood Pressure [Right] O2 Sat by Pulse 99 98 98 Oximetry 05/14/17 05/14/17 05/14/17 00:22 00:27 03:19 Temperature Pulse Rate 102 H 104 H 96 H Respiratory Rate Blood Pressure 119/70 Blood Pressure [Right] O2 Sat by Pulse 98 97 Oximetry 05/14/17 05/14/17 05/14/17 03:49 04:19 04:49 Temperature Pulse Rate 99 H 96 H 103 H Respiratory Rate Blood Pressure 117/66 122/69 111/59 Blood Pressure [Right] O2 Sat by Pulse Oximetry 05/14/17 05/14/17 05/14/17 05:19 05:49 06:19 Temperature Pulse Rate 100 H 102 H 99 H Respiratory Rate Blood Pressure 129/73 129/86 133/77 Blood Pressure [Right] O2 Sat by Pulse Oximetry 05/14/17 05/14/17 05/14/17 06:49 07:19 07:25 Temperature 99.1 F Pulse Rate 95 H 100 H 94 H Respiratory 16 Rate Blood Pressure 119/73 124/76 Blood Pressure 115/69 [Right] O2 Sat by Pulse Oximetry 05/14/17 07:34 Temperature Pulse Rate 94 H Respiratory Rate Blood Pressure 115/69 Blood Pressure [Right] O2 Sat by Pulse Oximetry - Exam Narrative Exam: Abd: soft, mild RUQ TN most likely from gallstone. Uterus gravid. Ext: + edema +1, no calf TN, no Sandy's sign. DTR's normal. FHT: CAT1, toco: occasional irritability. Cervix: unchanged from admission. Cardiovascular: Normal S1, Normal S2 Lungs: Clear to auscultation Vulva: both: normal FHR: category 1 Uterine Contraction Monitor Mode: External Uterine Contraction Pattern: Absent Deep Tendon Reflex Grade: Normal +2 - Labs Labs: Abnormal Labs 05/10/17 05/10/17 05/10/17 17:38 17:38 Unknown RBC 3.35 L Hgb 8.9 L Hct 27.3 L MCH 27 L RDW 15.9 H Sodium 136 L Potassium 3.0 L Chloride 95.8 L BUN 2 L Creatinine 0.5 L Uric Acid Magnesium Alkaline Phosphatase 131 H Lactate Dehydrogenase Total Protein 6.0 L Albumin 2.8 L Ur Specific [place] 1.001 L Urine Creatinine 05/11/17 05/11/17 05/11/17 07:56 14:48 14:48 RBC 3.51 L Hgb 9.3 L Hct 29.0 L MCH 26 L RDW 16.0 H Sodium Potassium 3.1 L Chloride BUN Creatinine 0.5 L Uric Acid 8.4 H Magnesium Alkaline Phosphatase Lactate Dehydrogenase 219 H Total Protein Albumin Ur Specific [place] Urine Creatinine 05/12/17 05/13/17 05/13/17 07:13 08:35 08:35 RBC Hgb Hct MCH RDW Sodium Potassium 3.5 L Chloride BUN Creatinine 0.6 L Uric Acid 9.8 H Magnesium Alkaline Phosphatase Lactate Dehydrogenase 201 H Total Protein Albumin Ur Specific [place] Urine Creatinine 52.7 H 05/13/17 05/14/17 09:33 00:42 RBC 2.80 L Hgb 7.3 L Hct 23.7 L MCH 26 L RDW 16.1 H Sodium Potassium Chloride BUN Creatinine Uric Acid Magnesium 5.20 H Alkaline Phosphatase Lactate Dehydrogenase Total Protein Albumin Ur Specific [place] Urine Creatinine Laboratory Results - last 24 hr 05/13/17 05/13/17 05/13/17 08:35 08:35 08:35 WBC RBC Hgb Hct MCV MCH MCHC RDW Plt Count Potassium 3.5 L Creatinine 0.6 L Estimated GFR > 60 Uric Acid 9.8 H Magnesium AST 33 ALT 15 Lactate Dehydrogenase 201 H Urine Color Urine Turbidity Urine pH Ur Specific [place] Urine Protein Urine Glucose (UA) Urine Ketones Urine Blood Urine Nitrite Urine Bilirubin Urine Urobilinogen Ur Leukocyte Esterase Urine WBC (Auto) Urine RBC (Auto) U Epithel Cells (Auto) Urine Mucus 05/13/17 05/13/17 05/14/17 09:33 18:50 00:42 WBC 6.0 RBC 2.80 L Hgb 7.3 L Hct 23.7 L MCV 85 MCH 26 L MCHC 31 RDW 16.1 H Plt Count 349 Potassium Creatinine Estimated GFR Uric Acid Magnesium 5.20 H AST ALT Lactate Dehydrogenase Urine Color Yellow Urine Turbidity Clear Urine pH 5.0 Ur Specific [place] 1.015 Urine Protein <15 mg/dl Urine Glucose (UA) Neg Urine Ketones 80 Urine Blood Neg Urine Nitrite Neg Urine Bilirubin Neg Urine Urobilinogen < 2.0 Ur Leukocyte Esterase Neg Urine WBC (Auto) 1.0 Urine RBC (Auto) 1.0 U Epithel Cells (Auto) < 1.0 Urine Mucus Few
[2017-05-14] MEDS: NORMODYNE PO SCH ×2 (10:09→20:53)
--- NOTE | 2017-05-14 11:04 | Ultrasound Report ---
ULTRASOUND BIOPHYSICAL PROFILE: History: Intrauterine growth restriction Technique: Transabdominal ultrasound with Doppler interrogation. 2 - breathing movements 2 - movements 2 - posture and tone 2 - Qualitative amniotic fluid volume 8 - TOTAL SCORE OF POSSIBLE 8 Heart Rate (bpm) 130
[2017-05-14] MEDS: PRENATAL VITAMIN PO SCH (13:36)
[2017-05-14] MEDS: VALTREX PO SCH (13:37)
[2017-05-14] MEDS: MAGNESIUM SULFATE 40GM/1000ML 40 GM/1,000 ML BAG IV SCH (13:40)
[2017-05-14] MEDS: FEOSOL PO SCH (20:53)
[2017-05-14] MEDS: AMBIEN PO PRN (20:54)
[2017-05-14] MEDS: ZOFRAN IV PRN (22:31)
[2017-05-15] MEDS: POLYCILLIN/NS 2 GM/100 ML 2 GM/100 ML BAG IV SCH (02:35)
[2017-05-15] MEDS: ALUM-MAG HYDROX-SIMETH 200-200-20MG/5ML PO PRN (05:03)
[2017-05-15 07:48] VITALS: BP 121/59
--- NOTE | 2017-05-15 08:55 | Progress Note ---
Assessment and Plan - Patient Problems (1) 34 weeks gestation of Onset Date: 05/11/17 Current Visit: Yes Status: Acute (2) uterine contractions Current Visit: Yes Status: Acute Plan to address problem: Celestone completed. (3) IUGR (intrauterine growth restriction) Onset Date: 05/11/17 Current Visit: Yes Status: Acute Plan to address problem: Patient will f/u with [facility] for weekly NST/BpP. . (4) Hypokalemia Onset Date: 05/11/17 Current Visit: Yes Status: Acute Plan to address problem: Pt was given K+ replacement. Last K+ level was 3.5. (5) Obesity (BMI 30-39.9) Onset Date: 05/11/17 Current Visit: Yes Status: Chronic (6) Pre-eclampsia superimposed on chronic hypertension Current Visit: Yes Status: Acute Plan to address problem: Magnesium sulfate was discontinued yesterday. BP has remained stable. Subjective - Subjective Date of service: 05/15/17 Principal diagnosis: IUP @ 34 3/7 weeks, superimposed preeclampsia on chronic HTN, , IUGR Interval history: Patient was admitted for contractions, elevated BP, and choleliothiasis 5 days ago. Initial exam showed the cervix to be 2-3 cm/50%/-2. Her contractions later stopped. Her BP was in the 150/90's, toxemia labs were initially normal. 24-hr urine showed 175 mg of protein. She has chronic HTN and has been on labetolol. She was given celestone for FLM. tracing has been CAT1. BPP was 8/8 but showed IUGR with growth in the 7th percentile. [facility] consult was done. On HD#4, she complained of having contractions, but denied any fluid leakage or bleeding. Her BP has been labile between 120/80's-150/90's. DTR's were brisk. FHT: CAT1, toco: occasional irritability, cervix: unchanged from admission. Magnesium sulfate was given for PTL, neuroprotection and superimposed pre- eclampsia and discontinued yesterday evening. This AM, she denies any complaint. She reports good movement. Current BP is in the 120/70's. Cervix: 2-3/50%/-3, unchanged. Will discharge patient home to f/u in office in 3 days and with [facility] next week. Patient reports: movement normal, contractions, no new complaints, no loss of fluid, no vaginal bleeding Objective - Vital Signs Vital Signs: Vital Signs - 12hr 05/14/17 05/14/17 05/15/17 21:05 22:35 02:43 Pulse Rate 100 H 93 H 88 Blood Pressure 164/94 111/57 121/57 05/15/17 05/15/17 05/15/17 03:05 05:13 06:05 Pulse Rate 100 H 88 94 H Blood Pressure 116/59 137/76 125/66 05/15/17 07:51 Pulse Rate 96 H Blood Pressure 121/59 - Exam Cardiovascular: Normal S1, Normal S2 Lungs: Clear to auscultation Vulva: both: normal FHR: category 1 Uterine Contraction Monitor Mode: External Cervical Dilatation: 2 Cervical Effacement Percentage: 50 station: -2 Uterine Contraction Pattern: Absent Deep Tendon Reflex Grade: Normal +2 - Labs Labs: Abnormal Labs 05/10/17 05/10/17 05/10/17 17:38 17:38 Unknown RBC 3.35 L Hgb 8.9 L Hct 27.3 L MCH 27 L RDW 15.9 H Sodium 136 L Potassium 3.0 L Chloride 95.8 L BUN 2 L Creatinine 0.5 L Uric Acid Magnesium Alkaline Phosphatase 131 H Lactate Dehydrogenase Total Protein 6.0 L Albumin 2.8 L Ur Specific Pelican 1.001 L Urine Creatinine 05/11/17 05/11/17 05/11/17 07:56 14:48 14:48 RBC 3.51 L Hgb 9.3 L Hct 29.0 L MCH 26 L RDW 16.0 H Sodium Potassium 3.1 L Chloride BUN Creatinine 0.5 L Uric Acid 8.4 H Magnesium Alkaline Phosphatase Lactate Dehydrogenase 219 H Total Protein Albumin Ur Specific Pelican Urine Creatinine 05/12/17 05/13/17 05/13/17 07:13 08:35 08:35 RBC Hgb Hct MCH RDW Sodium Potassium 3.5 L Chloride BUN Creatinine 0.6 L Uric Acid 9.8 H Magnesium Alkaline Phosphatase Lactate Dehydrogenase 201 H Total Protein Albumin Ur Specific Pelican Urine Creatinine 52.7 H 05/13/17 05/14/17 05/14/17 09:33 00:42 08:01 RBC 2.80 L Hgb 7.3 L Hct 23.7 L MCH 26 L RDW 16.1 H Sodium Potassium Chloride BUN Creatinine Uric Acid Magnesium 5.20 H 6.50 H Alkaline Phosphatase Lactate Dehydrogenase Total Protein Albumin Ur Specific Pelican Urine Creatinine 05/14/17 05/14/17 13:09 19:22 RBC Hgb Hct MCH RDW Sodium Potassium Chloride BUN Creatinine Uric Acid Magnesium 6.10 H 5.60 H Alkaline Phosphatase Lactate Dehydrogenase Total Protein Albumin Ur Specific Pelican Urine Creatinine Laboratory Results - last 24 hr 05/14/17 05/14/17 05/14/17 08:01 13:09 19:22 Magnesium 6.50 H 6.10 H 5.60 H
--- NOTE | 2017-05-15 08:59 | Discharge Summary ---
Providers - Providers Date of Admission: 05/10/17 16:05 Date of discharge: 05/15/17 Attending physician: FARAZ FLEMING MD 05/10/17 17:24 Consult to Physician [CONS] Routine Comment: Consulting Provider: TATIANA NIELSEN I Physician Instructions: Reason For Exam: Chronic HTN with IUGR 05/11/17 08:20 Consult to Physician [CONS] Routine Comment: Consulting Provider: LILLIAM BELTRAN Physician Instructions: Reason For Exam: IUP @ 34 week; IUGR 05/11/17 20:11 Consult to Physician [CONS] Urgent Comment: Consulting Provider: NIALL MCPHERSON Physician Instructions: pt with gallsones Reason For Exam: Gallstones 05/11/17 20:20 Consult to Physician [CONS] Urgent Comment: Consulting Provider: ROSEMARIE CADET Physician Instructions: pt with gallstones Reason For Exam: Gallstones Primary care physician: FARAZ FLEMING MD Hospitalization Reason for admission: IUP - , other (superimposed pre-eclampsia) Discharge diagnosis: other ( labor, superimposed pre-eclampsia, IUGR, cholelithiasis) Hospital course: Patient's BP became stable. She will continue labetolol BID. Contractions stopped. Celestone completed. She is being discharged home to follow up with [facility] for weekly NST/BPP and Life cycle in 3 days. Condition at discharge: Stable Disposition: DC-01 TO HOME OR SELFCARE - Discharge Diagnoses (1) 34 weeks gestation of Status: Acute (2) uterine contractions Status: Acute (3) IUGR (intrauterine growth restriction) Status: Acute (4) Hypokalemia Status: Acute (5) Obesity (BMI 30-39.9) Status: Chronic (6) Pre-eclampsia superimposed on chronic hypertension Status: Acute Plan - Provider Discharge Summary Activity: routine Diet: routine Instructions: routine Additional instructions: [] Smoking cessation referral if applicable(refer to patient education folder for contact #) [] Refer to [facility] Booklet Call your doctor immediately for: * Fever > 100.5 * Heavy vaginal bleeding ( >1 pad per hour) * Severe persistent headache * Shortness of breath * Reddened, hot, painful area to leg or breast * Drainage or odor from incision. * Keep incision clean and dry at all times and follow doctor's instructions regarding bathing/showering - Follow up plan Follow up: FARAZ FLEMING MD [Primary Care Provider] - 7 Days
== END 2017-05-15 10:19 | disposition home or self-care (01) | DRG 781 ==
LOC: LD 16:05
PROVIDERS: ADMIT Obstetrics & Gynecology; ATTEND Obstetrics & Gynecology
DX: O11.3 Pre-existing hypertension with pre-eclampsia, third trimester (principal); O99.213 Obesity complicating pregnancy, third trimester; O99.013 Anemia complicating pregnancy, third trimester; E66.9 Obesity, unspecified; Z68.37 Body mass index [BMI] 37.0-37.9, adult; O36.5930 Maternal care for other known or suspected poor fetal growth, third trimester, not applicable or unspecified; D64.9 Anemia, unspecified; O99.283 Endocrine, nutritional and metabolic diseases complicating pregnancy, third trimester; O99.613 Diseases of the digestive system complicating pregnancy, third trimester; K80.20 Calculus of gallbladder without cholecystitis without obstruction; O60.03 Preterm labor without delivery, third trimester; Z3A.34 34 weeks gestation of pregnancy; E87.6 Hypokalemia
CPT/HCPCS: 36415; 76705; 76815; 76816; 76819; 76820; 80048; 80074; 80307; 81001; 82150; 82565; 82570; 83615; 83690; 83735; 84132; 84156; 84450; 84460; 84550; 85025; 85027; 86850; 86900; 86901; J0290; J0595; J0702; J2405; J3475; J3480; J7040